=== PATIENT | female | born 1960 | race African-American/Black ===

== ENCOUNTER 2017-06-19 16:56 | Emergency (ER) | payer OTHER ==
[~2017-06-19] VITALS: Ht 172.7 cm; Wt 80.5 kg
[~2017-06-19 16:56] MED LIST: AMLO2.5T PO; ASPI81TA82 PO; DICL75 PO; HYDR12.56 PO; LEVO25TA36 PO; ORPH100T PO
[2017-06-19 16:57] VITALS: BP 196/79; PULSE 68; RESP 16; TEMP 98.6; O2SAT 98
[2017-06-19] MEDS ORDERED: HYDR12.57 PO (18:22)
[2017-06-19] MEDS ORDERED: LEVO25TA4 PO (18:22)
[2017-06-19] MEDS ORDERED: AMLO2.5T PO (18:22)
[2017-06-19] MEDS ORDERED: LIOT25TA3 PO (18:22)
[2017-06-19] MEDS ORDERED: SODIUM CHLOR 0.9% 1000 ML INJ 1,000 ML IV SCH (18:28)
[2017-06-19] MEDS ORDERED: SODIUM CHLORIDE 0.9% FLUSH 10 ML FLUSH IV FLUSH PRN (18:30)
[2017-06-19] MEDS ORDERED: ONDANSETRON HCL 4 MG/2 ML VIAL IVP ONE (18:30)
[2017-06-19] MEDS ORDERED: KETOROLAC TROMETHAMINE 30 MG/ML (IVP) VIAL IVP ONE (18:30)
--- NOTE | 2017-06-19 18:33 | PD ---
HPI Chief Complaint: Flank/Kidney Pain Time Seen by Provider: 18:28 Travel History International Travel<30 days: No Contact w/Intl Traveler<30days: No Traveled to known affect area: No History of Present Illness HPI 57-year-old Afro-[place] female presents the emergency department with sudden onset left flank pain approximately 11 AM this morning. Patient states it was sharp and debilitating for several minutes and then seemed to ease up. Patient has had intermittent pain in the same left flank radiation into the anterior abdomen several hours. Patient has no history of fever, chills, nausea, vomiting, or diverticulitis in the past. No history of kidney stones previously. He is currently about a 4 out of 10. Patient is allergic to acetaminophen and oxycodone. PFSH Past Medical History Cardiovascular Problems: Yes (HTN) Hypertension: Yes Thyroid Disease: Yes Tetanus Vaccination: Unknown Influenza Vaccination: Yes ?: Not Menopausal: Yes Past Surgical History Other Surgery: Yes (ARMPIT RECONSTRUCTION R/T INFECTION) Social History Alcohol Use: No Tobacco Use: No Substance Use: No Allergies-Medications (Allergen,Severity, Reaction): Coded Allergies: acetaminophen (Unverified Allergy, Severe, 06/19/17) oxycodone (Unverified Allergy, Severe, 06/19/17) Reported Meds & Prescriptions Reported Meds & Active Scripts Active Reported Liothyronine (Liothyronine Sodium) 25 Mcg Tab 25 Mcg PO DAILY Hydrochlorothiazide 12.5 Mg Cap 12.5 Mg PO DAILY Levothyroxine (Levothyroxine Sodium) 25 Mcg Tab 25 Mcg PO DAILY Amlodipine (Amlodipine Besylate) 2.5 Mg Tab 2.5 Mg PO DAILY Review of Systems Except as stated in HPI: all other systems reviewed are Neg General / Constitutional: No: Fever Eyes: No: Visual changes HENT: No: Headaches Cardiovascular: No: Chest Pain or Discomfort Respiratory: No: Shortness of Breath Gastrointestinal: No: Abdominal Pain Genitourinary: Positive: Flank Pain, No: Urgency, Frequency, Dysuria Musculoskeletal: No: Pain Skin: No Rash Neurologic: No: Weakness Psychiatric: No: Depression Endocrine: No: Polydipsia Hematologic/Lymphatic: No: Easy Bruising Physical Exam Narrative GENERAL: Patient appears in mild distress. SKIN: Warm and dry. Normal color. Normal turgor. No rash. HEAD: Atraumatic. Normocephalic. EYES: Pupils equal and round. No scleral icterus. No injection or drainage. ENT: No nasal bleeding or discharge. Mucous membranes pink and moist. Pharynx is clear. Airway is patent. NECK: Trachea midline. Supple and nontender. CARDIOVASCULAR: Regular rate and rhythm. RESPIRATORY: No accessory muscle use. Clear to auscultation. Breath sounds equal bilaterally. GASTROINTESTINAL: Abdomen soft, non-tender, nondistended. Hepatic and splenic margins not palpable. Mild left-sided CVA tenderness with percussion. MUSCULOSKELETAL: Extremities without clubbing, cyanosis, or edema. No obvious deformities. NEUROLOGICAL: Awake and alert. No obvious cranial nerve deficits. Motor grossly within normal limits. Five out of 5 muscle strength in the arms and legs. Normal speech. PSYCHIATRIC: Appropriate mood and affect; insight and judgment normal. Data Data Last Documented VS Vital Signs Date Time Temp Pulse Resp B/P (MAP) Pulse Ox O2 Delivery O2 Flow Rate FiO2 06/19/17 18:24 18 06/19/17 16:57 98.6 68 196/79 (118) 98 Room Air Orders Orders Urinalysis - C+S If Indicated (06/19/17 17:30) Complete Blood Count With Diff (06/19/17 17:30) Basic Metabolic Panel (Bmp) (06/19/17 17:30) Ct Abd/Pel W/O Iv Contrast (06/19/17 18:28) Iv Access Insert/Monitor (06/19/17 18:28) Ecg Monitoring (06/19/17 18:28) Oximetry (06/19/17 18:28) Ondansetron Inj (Zofran Inj) (06/19/17 18:30) Sodium Chlor 0.9% 1000 Ml Inj (Ns 1000 M (06/19/17 18:28) Sodium Chloride 0.9% Flush (Ns Flush) (06/19/17 18:30) Ketorolac Inj (Toradol Inj) (06/19/17 18:30) MDM Medical Decision Making Medical Screen Exam Complete: Yes Emergency Medical Condition: Yes Differential Diagnosis Left flank pain. Renal colic. Urinary tract infection. Diverticulitis. Narrative Course Patient is medically stable at time of exam. Labs ordered including CBC, BMP, and urinalysis. IV access is obtained patient is given 30 mg Toradol IV as well as 4 mg Zofran IV. As well as 1000 mL normal saline bolus. CT of the abdomen and pelvis without contrast is ordered to rule out kidney stone. 1900 hrs. patient care is assumed by Dr. Rowe awaiting labs and CT results. Final disposition will be determined by him. Condition: Stable Carter Vides Jun 19, 2017 18:33
[2017-06-19 18:47] VITALS: BP 163/70; PULSE 56; RESP 18; O2SAT 98
[2017-06-19 18:58] VITALS: BP 146/68; PULSE 73; RESP 14; O2SAT 100
[2017-06-19 19:31] LABS: BLOOD, URINE NEG (NEG); COMMENT (UR) CULT NOT INDICATED; CULTURE IF INDICATED CULT NOT INDICATED; GLUCOSE,URINE NEG (NEG); KETONE, URINE NEG (NEG); MUCUS URINE FEW /lpf (OCC); NITRITE,URINE NEG (NEG); SQUAMOUS EPITHELIAL CELL URINE 1 /hpf (0-5); URINE COLOR YELLOW (YELLW/STRAW)
[2017-06-19 19:34] LABS: AUTOMATED NEUTROPHIL # 3.3 TH/MM3 (1.8-7.7); BASOPHIL # 0.1 TH/MM3 (0-0.2); EOSINOPHIL # 0.1 TH/MM3 (0-0.4); HEMATOCRIT 38.3 % (35.0-46.0); HEMO FLAGS DIFF FINAL; LYMPH % 38.7 % (9.0-44.0); LYMPHOCYTE # 2.5 TH/MM3 (1.0-4.8); MEAN CELL VOLUME 88.2 FL (80.0-100.0); MEAN CORPUSCULAR HEMOGLOBIN 29.4 PG (27.0-34.0); MEAN CORPUSCULAR HGB CONC 33.3 % (32.0-36.0); MONO % 7.3 % (0.0-8.0); PLATELET COUNT 223 TH/MM3 (150-450); RED BLOOD COUNT 4.34 MIL/MM3 (4.00-5.30); RED CELL DISTRIBUTION WIDTH 12.8 % (11.6-17.2); WHITE BLOOD COUNT 6.3 TH/MM3 (4.0-11.0)
[2017-06-19 19:46] LABS: BICARBONATE 26.9 MEQ/L (21.0-32.0); POTASSIUM 3.4 MEQ/L (3.5-5.1)
--- NOTE | 2017-06-19 20:22 | RADRPT ---
EXAM DATE/TIME: 06/19/2017 19:57 [facility] COMPARISON: No previous studies available for comparison. INDICATIONS : Left flank pain , evaluate for renal stone ORAL CONTRAST: No oral contrast ingested. RADIATION DOSE: 7.97 CTDIvol (mGy) MEDICAL HISTORY : Hypertension. Cardiovascular disease SURGICAL HISTORY : None. ENCOUNTER: Initial ACUITY: 2 days PAIN SCALE: 4/10 LOCATION: Left flank TECHNIQUE: Volumetric scanning of the abdomen and pelvis was performed. Using automated exposure control and ad justment of the mA and/or kV according to patient size, radiation dose was kept as low as reasonably achievable to obtain optimal diagnostic quality images. DICOM format image data is available electro nically for review and comparison. FINDINGS: LOWER LUNGS: The visualized lower lungs are clear. LIVER: Homogeneous density without lesion. There is no dilation of the biliary tree. No calcified gallston es. SPLEEN: Normal size without lesion. PANCREAS: Within normal limits. KIDNEYS: Normal in size and shape. There is no mass, stone, or hydronephrosis. ADRENAL GLANDS: The right adrenal gland is unremarkable. There is a 19 x 17 mm nodule within the left adrenal gland c onsistent with probable adrenal adenoma. VASCULAR: There is no aortic aneurysm. BOWEL/MESENTERY: The stomach, small bowel, and colon demonstrate no acute abnormality. There is no free intraperitone al air or fluid. The appendix is normal. ABDOMINAL WALL: A small umbilical hernia contains a loop of small bowel. RETROPERITONEUM: There is no lymphadenopathy. BLADDER: No wall thickening or mass. REPRODUCTIVE: Calcification is are noted within the uterus consistent with probable small fibroids. INGUINAL: There is no lymphadenopathy or hernia. MUSCULOSKELETAL: Minimal scoliosis of the lumbar spine is noted. CONCLUSION: 1. No acute obstructive uropathy. 2. Small umbilical hernia containing a loop of small bowel. 3. 19 x 17 mm left adrenal nodule consistent with probable adrenal adenoma. 4. Calcifications within the uterus consistent with probable small uterine fibroids. Fabiano Baker MD on June 19, 2017 at 20:16 Board Certified Radiologist. This report was verified electronically.
[2017-06-19] MEDS ORDERED: MOBI15TA PO (20:33)
[2017-06-19] MEDS ORDERED: ROBA750T PO (20:33)
--- NOTE | 2017-06-19 20:33 | PD ---
Physical Exam Narrative Patient was seen by my assistant to the ceo and signed out to me. Data Data Last Documented VS Vital Signs Date Time Temp Pulse Resp B/P (MAP) Pulse Ox O2 Delivery O2 Flow Rate FiO2 06/19/17 18:58 73 14 146/68 (94) 100 Room Air 06/19/17 16:57 98.6 Orders Orders Urinalysis - C+S If Indicated (06/19/17 17:30) Complete Blood Count With Diff (06/19/17 17:30) Basic Metabolic Panel (Bmp) (06/19/17 17:30) Ct Abd/Pel W/O Iv Contrast (06/19/17 18:28) Iv Access Insert/Monitor (06/19/17 18:28) Ecg Monitoring (06/19/17 18:28) Oximetry (06/19/17 18:28) Ondansetron Inj (Zofran Inj) (06/19/17 18:30) Sodium Chlor 0.9% 1000 Ml Inj (Ns 1000 M (06/19/17 18:28) Sodium Chloride 0.9% Flush (Ns Flush) (06/19/17 18:30) Ketorolac Inj (Toradol Inj) (06/19/17 18:30) Labs Laboratory Tests Test 06/19/17 18:45 White Blood Count 6.3 TH/MM3 Red Blood Count 4.34 MIL/MM3 Hemoglobin 12.7 GM/DL Hematocrit 38.3 % Mean Corpuscular Volume 88.2 FL Mean Corpuscular Hemoglobin 29.4 PG Mean Corpuscular Hemoglobin Concent 33.3 % Red Cell Distribution Width 12.8 % Platelet Count 223 TH/MM3 Mean Platelet Volume 9.3 FL Neutrophils (%) (Auto) 52.0 % Lymphocytes (%) (Auto) 38.7 % Monocytes (%) (Auto) 7.3 % Eosinophils (%) (Auto) 1.0 % Basophils (%) (Auto) 1.0 % Neutrophils # (Auto) 3.3 TH/MM3 Lymphocytes # (Auto) 2.5 TH/MM3 Monocytes # (Auto) 0.5 TH/MM3 Eosinophils # (Auto) 0.1 TH/MM3 Basophils # (Auto) 0.1 TH/MM3 CBC Comment DIFF FINAL Differential Comment Urine Color YELLOW Urine Turbidity CLEAR Urine pH 6.0 Urine Specific [place] 1.021 Urine Protein NEG mg/dL Urine Glucose (UA) NEG mg/dL Urine Ketones NEG mg/dL Urine Occult Blood NEG Urine Nitrite NEG Urine Bilirubin NEG Urine Urobilinogen LESS THAN 2.0 MG/DL Urine Leukocyte Esterase MOD Urine RBC 1 /hpf Urine WBC 1 /hpf Urine Squamous Epithelial Cells 1 /hpf Urine Mucus FEW /lpf Microscopic Urinalysis Comment CULT NOT INDICATED Blood Urea Nitrogen 20 MG/DL Creatinine 0.73 MG/DL Random Glucose 84 MG/DL Calcium Level 9.2 MG/DL Sodium Level 138 MEQ/L Potassium Level 3.4 MEQ/L Chloride Level 104 MEQ/L Carbon Dioxide Level 26.9 MEQ/L Anion Gap 7 MEQ/L Estimat Glomerular Filtration Rate 99 ML/MIN [facility] Supervised Visit with GLENIS: Yes Interpretation(s) [address] scan abdomen pelvis shows no acute obstructive uropathy. Small umbilical hernia containing a loop of small bowel. Left adrenal nodule typical adrenal adenoma. Uterine fibroids. CBC within normal limit. BMP within normal limit. Potassium 3.4. BUN 20. UA is negative. Diagnosis Primary Impression: Left flank pain Patient Instructions: General Instructions Additional Instruction: Take medications as needed for pain. Moist heat. Follow-up with personal physician and orthopedist. Med/Other Pt SpecificInfo: Prescription(s) given Scripts Methocarbamol (Robaxin) 750 Mg Tab 750 MG PO QID for Muscle Spasm, #40 TAB 0 Refills Prov: Slava Rowe MD 06/19/17 Meloxicam (Mobic) 15 Mg Tab 15 MG PO DAILY for Pain, #20 TAB 0 Refills Prov: Slava Rowe MD 06/19/17 Disposition: 01 DISCHARGE HOME Condition: Stable Slava Rowe MD Jun 19, 2017 20:33
== END 2017-06-19 20:49 | disposition home or self-care (01) ==
LOC: NEPD 16:56
DX: R10.9 Unspecified abdominal pain (principal); I10 Essential (primary) hypertension; E07.9 Disorder of thyroid, unspecified
CPT/HCPCS: 74176; 80048; 81001; 85025; 96374; 99285; J1885; J7030